=== PATIENT | female | born 1980 | race African-American/Black ===

== ENCOUNTER → 2017-11-11 10:30 | Outpatient (REF) | payer MEDICAID, SELFPAY ==
--- NOTE | 2017-11-11 11:15 | PAPFT_PTH ---
PATIENT: Susana Lipscomb LOC: [facility] U#:[id number] AGE/SX: 44/F ROOM: RE11/11/[address]: MILAN Vitale : 1980 BED: DIS: SPEC #: [id number] RECD: 11/11/17 12:40 STATUS: GEORGE REQ #: [id number] JOSE GUADALUPE: 11/11/17 11:[address]: Belinda San DEPT: [facility] Cytology RECD BY: Bebe Bowser ENTERED: 11/11/17 12:40 SP TYPE: PAPFT OTHR DR: None Tissues: 1 - CX/ENDOCX FOR PAP SMEARS Procedures: PAP THIN PREP/UVM Screening HPV DNA PROBE Comments: [id number]
[2017-11-12 14:53] LABS: Chlamydia Result Negative; GC Result Negative; Specimen Description CERVIX
== END ==
LOC: LBN 10:30
PROVIDERS: Visit Provider Nurse Practitioner Family
DX: Z11.3 Encounter for screening for infections with a predominantly sexual mode of transmission (principal); Z12.4 Encounter for screening for malignant neoplasm of cervix; Z11.51 Encounter for screening for human papillomavirus (HPV)
CPT/HCPCS: 87491; 87591; 88142; 87624

== ENCOUNTER 2017-12-23 12:30 | Outpatient (REF) | payer MEDICAID, SELFPAY ==
[2017-12-23 19:27] LABS: Cholesterol 190 mg/dL (50-200); HDL Cholesterol 31 mg/dL (40-60); LDL CHOLESTEROL 119 mg/dL (<100); TSH 1.43 uIU/mL (0.358-3.74); Triglyceride 184 mg/dL (30-150)
[2017-12-23 19:34] LABS: HCT 43.6 % (36.0-46.0); HGB 14.5 g/dL (12.0-15.5); Mean Corp. HGB Concentration 33.3 g/dL (32.0-36.0); Mean Corpuscular Hemoglobin 29.2 pg (27.0-33.0); Mean Corpuscular Volume 87.9 fL (80-95); Mean Platelet Volume 10.2 fL (8.0-11.0); Platelet Count 265 x1000/uL (130-400); RBC 4.96 m/cumm (4.00-5.20); RBC Distribution Width 14.3 % (11.7-14.6); White Blood Cell Count 5.64 k/cumm (4.4-10.8)
== END 2017-12-23 12:50 ==
LOC: NCHCN 12:30
PROVIDERS: PCP Nurse Practitioner Family; Visit Provider Nurse Practitioner Family
DX: Z00.00 Encounter for general adult medical examination without abnormal findings (principal); Z13.0 Encounter for screening for diseases of the blood and blood-forming organs and certain disorders involving the immune mechanism; Z13.220 Encounter for screening for lipoid disorders; Z13.29 Encounter for screening for other suspected endocrine disorder
CPT/HCPCS: 80061; 83721; 85027; 84443

== ENCOUNTER 2020-06-07 01:10 | Outpatient (CLI) | payer MEDICAID, SELFPAY ==
--- NOTE | 2020-06-07 | DI.MAMMO_ITS ---
EXAM: MAMMO SCREENING CLINICAL HISTORY: SCREENING, [facility],Z00.00 TECHNIQUE: Mammograms were interpreted according to the usual protocol including computer analysis w PT PAL CAD system, tomosynthesis and C-view imaging. COMPARISON: FINDINGS: The breasts are of moderate density with fairly symmetrical distribution of fibroglandular tissue. N o dominant mass or clumped microcalcification is identified in either breast. There are numerous sma ll rim calcified nodules in both breasts. Today's examination is a baseline examination. IMPRESSION: No specific evidence of malignancy at this time. Routine screening examinations are suggested yearly intervals in this age group according to the ACR guidelines. BI-RADS Category 1 - Negative Breast Density - Category B - Scattered areas of fibroglandular density
== END 2020-06-07 01:30 ==
PROVIDERS: Visit Provider Physician Assistant
DX: Z12.31 Encounter for screening mammogram for malignant neoplasm of breast (principal)
CPT/HCPCS: 77063; 77067

== ENCOUNTER 2021-04-07 04:08 | Outpatient (CLI) | payer OTHER, SELFPAY ==
[2021-04-07 09:58] LABS: Hemoglobin A1C 5.3 % (<5.7)
[2021-04-07 10:56] LABS: Calculated LDL 125 mg/dL (<100); Cholesterol 185 mg/dL (<200); HDL Cholesterol 46 mg/dL (40-60); Triglyceride 74 mg/dL (<150)
[2021-04-08 12:23] LABS: HIV-1/2 Ag & Ab Screen Negative (Negative)
[2021-04-10 11:48] LABS: Hepatitis C Ab w Rflx HCV PCR Negative (Negative)
== END 2021-04-07 04:09 | disposition home or self-care (01) ==
LOC: LBO 04:09
PROVIDERS: PCP Family Medicine; Visit Provider Family Medicine
DX: Z00.00 Encounter for general adult medical examination without abnormal findings (principal); E66.9 Obesity, unspecified; Z11.4 Encounter for screening for human immunodeficiency virus [HIV]; Z11.59 Encounter for screening for other viral diseases
CPT/HCPCS: 36415; 80061; 86803; 87389; 83036

== ENCOUNTER 2021-07-22 11:48 | Emergency (ER) | payer OTHER, SELFPAY ==
[2021-07-22 11:51] VITALS: BP 124/78; PULSE 90; RESP 17; TEMP 36.1; O2SAT 99
--- NOTE | 2021-07-22 12:12 | ED.GENADUL_ITS ---
Discharge Plan Disposition Patient Disposition: HOME Condition: Stable Discharge Details Clinical Impression: Laceration of left index finger w/o foreign body with damage to nail Primary Care Provider: Daphney Coe ED Provider: Liat Michael Home Meds and New Rx's Prescriptions: Continued ParaGard T 380A 380 square mm intrauterine device 1 device IY ONCE 0RF acetaminophen [Tylenol] 325 MG tablet 325 mg PO PRN 0RF ascorbic acid (vitamin C) [Vitamin C] 500 MG tablet 500 mg PO DAILY 0RF fluticasone propionate 50 mcg/actuation spray,suspension 2 spray intranasal DAILY 0RF Rx Instructions: administer into each nostril albuterol sulfate [ProAir HFA] 90 mcg/actuation HFA aerosol inhaler 2 puff inhalation Q6H PRN0RF ibuprofen 200 MG capsule 600 mg PO QID PRN PRN0RF Discharge Instructions Instructions: Finger Laceration (ED) Additional Instructions: Keep dressing on for the next 24-48 hours. After that you may gently remove the dressing under running water. Keep clean and dry. May apply bulky dressing and use the splint to prevent bumping. Please take Tylenol or Ibuprofen with food every 4-6 hours as needed for pain and swelling. Keep covered while at work. Allowed to air dry at least 1 to 2 hours a day. Return to the ER or be seen sooner for any signs of infection including increased redness, red streaks, swelling or drainage. Follow up with primary care provider in 3-5 days. Return to ED sooner if any worsening or concerns. Increase oral fluids. Stand Alone Forms: Work Release Referrals: Daphney Coe MD [Primary Care Provider] - 5 days Medical Decision Making 40-year-old female presents to the ER chief complaint of left index finger laceration which occurred prior to arrival. Patient was cutting vegetables cut the tip of her left index finger off. Bleeding is controlled with pressure dressing upon arrival. She has full range of motion to the digit. There is no suturable laceration noted. Last tetanus vaccination was approximately 8 years ago. Wound care was performed with chlorhexidine scrub normal saline by staff registered nurse. Surgicel dressing, tube gauze was applied by staff registered nurse with an aluminum frog splint. Upon patient reevaluation she is complaining of pain gram of Tylenol was ordered and given to her. Discussed home care strict return instructions and follow-up she verbalizes understanding. Bleeding was controlled at time of discharge. This text was generated using [employer] dictation system, please disregard any oddities of phrase or misspellings. HPI General Mode of arrival: ambulatory . Date/Time Provider Initiated Documentation: 07/22/21 12:00 . Limitations to Documentation: no limitations . Information obtained by: patient and RN notes reviewed . HPI Narrative: 40-year-old female presents to the ER chief complaint of left index finger laceration which occurred prior to arrival. Patient was cutting vegetables cut the tip of her left index finger off. Bleeding is controlled with pressure dressing upon arrival. She has full range of motion to the digit. There is no suturable laceration noted. Last tetanus vaccination was approximately 8 years ago. Related Data Home Medications Medication Instructions Recorded Confirmed acetaminophen 325 mg tablet 325 mg PO PRN 05/27/12 07/22/21 (Tylenol) ascorbic acid (vitamin C) 500 mg 500 mg PO DAILY 04/07/15 07/22/21 tablet (Vitamin C) ibuprofen 200 mg capsule 600 mg PO QID PRN PRN 04/01/16 07/22/21 copper 380 square mm intrauterine 1 device IY ONCE 12/10/17 07/22/21 device (ParaGard T 380A) albuterol sulfate 90 mcg/actuation 2 puff INHALATION Q6H PRN 02/06/21 07/22/21 aerosol inhaler (ProAir HFA) fluticasone propionate 50 2 spray INTRANASAL DAILY 02/06/21 07/22/21 mcg/actuation nasal spray,suspension Allergies Allergy/AdvReac Type Severity Reaction Status Date / Time Penicillins Allergy Severe itch and Verified 07/22/21 11:57 rash meperidine HCl [From Demerol] AdvReac Severe I filt Verified 07/22/21 11:57 out seasonal allergies Allergy Unknown Uncoded 07/22/21 11:57 General Stated Complaint: Laceration DIANE: 4 Review of Systems Integumentary/Breasts Skin/Breast: Reports as per HPI and Reports wounds PFSH All Active Problems (Updated 07/22/21 @ 13:05 by Liat Michael) Laceration of left index finger w/o foreign body with damage to nail (Acute) Obesity due to excess calories without serious comorbidity (Acute) IUD surveillance (Acute 04/07/15) no iud issues per patient iud in place pt instructed to check string after menses Medical History (Updated 07/22/21 @ 13:05 by Liat Michael) Migraine h/o migraine since childhood, worse when menstruating. Managed with imitrex, ibuprofen. Very infrequent now. Surgical History (Updated 03/31/21 @ 15:58 by Daphney Coe MD) section (10/10/12) Arrest of descent. Unengaged head. Macrosomia Family History (Updated 12/21/20 @ 13:52 by Sydni Salinas) Mother Migraine Father Diabetes Grandmother Diabetes Grandmother Diabetes Social History (Updated 03/31/21 @ 15:51 by Daphney Coe MD) Smoking/Tobacco Use Status: Never Second Hand Exposure: No Smoking risk assessment performed?: Yes Alcohol Intake: current Alcohol Intake frequency: a few times a month Alcohol type: wine Drug use: Never Substance use type: does not use Adopted: No Household members: spouse and children Number of Children: 2 Education Level: high school Do you need help understanding health information?: Never current occupation: works as a cook in [employer] Pets and animals: Yes Pets and animals: cat(s) and dog(s) Sexually active: Yes Do you think of yourself as: straight/heterosexual What is your relationship status?: How often do you talk on the phone with friends or family?: three or more times per week How often do you get together with friends or relatives?: three or more times per week Do you belong to any clubs or organized social groups?: no Panel score (0-1 are the most socially isolated patients): 2 What type of physical activity do you participate in: walking Frequency: 3-4 times per week Radha/Judaism: No preference Seatbelt use: always Helmet use: Yes Helmet use: always Drive intox or ride w/intox electric mule driver: No Do you feel safe in your relationship?: Yes Additional Social history: Enjoys spending time with her children, hiking. Female Reproductive History Menstrual control method: copper IUCD (Lot#[id number] EXP SEP 2013) History History 2 Para Hx # Term Pregnancies 2 Multiple births Hx # Pregnancies Ectopic pregnancies AB induced Hx Number of Living Children AB spontaneous Exam Extrem Left upper extremity: hand Hand/finger images: 1. Left index finger avulsion, partial tip amputation measuring approximately 0.5 cm venous oozing noted. Full range of motion noted to the digit. No other injuries. Course Vital Signs Vital signs: Vital Signs Temperature 36.1 C L 07/22/21 11:51 Pulse 90 07/22/21 11:51 Respiratory Rate 17 07/22/21 11:51 Blood Pressure 124/78 07/22/21 11:51 Pulse Oximetry 99 07/22/21 11:51 Temperature 36.1 C L 07/22/21 11:51 Temperature Source Tympanic 07/22/21 11:51 Pulse 90 07/22/21 11:51 Respiratory Rate 17 07/22/21 11:51 Respiratory Effort Non-Labored 07/22/21 11:54 Blood Pressure 124/78 07/22/21 11:51 Blood Pressure Position Sitting 07/22/21 11:51 Pulse Oximetry 99 07/22/21 11:51 Oxygen Delivery Method Room Air 07/22/21 11:51 Oxygen Flow Rate 0 07/22/21 11:51 Pain Level 1 07/22/21 11:54
[2021-07-22] MEDS: Cellulose,Oxidized 2X3 PKT 1 EACH MC (12:48)
[2021-07-22] MEDS: Acetaminophen 500 MG TAB 1000 MG PO (13:15)
== END 2021-07-22 13:17 | disposition home or self-care (01) ==
PROVIDERS: Emergency Provider Registered Nurse Emergency; PCP Family Medicine
DX: S61.311A Laceration without foreign body of left index finger with damage to nail, initial encounter (principal); W26.0XXA Contact with knife, initial encounter
CPT/HCPCS: 29130; 99283

== ENCOUNTER 2023-01-15 10:44 | Outpatient (REF) | payer OTHER, SELFPAY ==
--- NOTE | 2023-02-15 14:45 | PAPFT_PTH ---
PATIENT: Susana Lipscomb LOC: [facility] U#:[id number] AGE/SX: 42/F ROOM: RE01/15/[address]: Daphney Coe : 1980 BED: DIS: 01/15/2023 SPEC #: [id number] RECD: 02/18/23 13:24 STATUS: GEORGE REQ #: [id number] JOSE GUADALUPE: 02/15/23 14:[address]: Daphney Coe DEPT: [facility] Cytology RECD BY: Bebe Bowser Tissues: 1 - CX/ENDOCX FOR PAP SMEARS Procedures: PAP THIN PREP/UVM Screening HPV DNA PROBE Comments: [id number]
== END 2023-01-15 10:45 | disposition home or self-care (01) ==
LOC: LBN 10:44
PROVIDERS: PCP Family Medicine; Visit Provider Family Medicine
DX: Z12.4 Encounter for screening for malignant neoplasm of cervix (principal)
CPT/HCPCS: 88142; 87624

== ENCOUNTER 2023-08-08 13:13 | Outpatient (CLI) | payer OTHER, SELFPAY ==
[2023-08-08 13:06] LABS: Abs Immature Grans 0.01 10^3/uL (0.0-0.06); Absolute Basophil Count 0.01 10^3/uL (0.0-0.2); Absolute Eosinophil Count 0.01 10^3/uL (0.0-0.7); Absolute Lymphocyte Count 1.25 10^3/uL (1.2-3.4); Absolute Monocyte Count 0.32 10^3/uL (0.1-0.8); Absolute Neutrophil Count 3.56 10^3/uL (1.2-6.7); Basophils % 0.2 %; Eosinophils % 0.2 %; HCT 41.8 % (36.0-46.0); HGB 13.7 g/dL (11.2-15.7); Immature Grans % 0.2 %; Lymphocytes % 24.2 %; MCH 29.2 pg (27.0-33.0); MCHC 32.8 % (32.0-36.0); MCV 89 fL (80-95); MPV 9.6 fL (8.0-11.0); Monocytes % 6.2 %; Platelet Count 253 10^3/uL (130-400); RBC 4.69 10^6/uL (3.93-5.22); RDW 14.6 % (11.7-14.6); RDW-SD 47.3 fL; WBC 5.16 10^3/uL (4.4-10.8)
[2023-08-08 13:55] LABS: ALT 26 U/L (14-59); AST 15 U/L (15-37); Alkaline Phosphatase 41 U/L (46-116); BUN 11 mg/dL (7-18); Bilirubin, Total 0.7 mg/dL (0.2-1.0); CREATININE 0.7 mg/dL (0.55-1.02); Calcium 8.5 mg/dL (8.5-10.1); Chloride 104 mmol/L (98-107); Glucose 85 mg/dL (74-106); Potassium 3.6 mmol/L (3.5-5.1); Sodium 139 mmol/L (136-145); Total Protein 7.5 g/dL (6.4-8.2)
== END 2023-08-08 13:14 | disposition home or self-care (01) ==
LOC: LBO 13:13
PROVIDERS: PCP Family Medicine; Visit Provider Plastic Surgery
DX: E65 Localized adiposity (principal)
CPT/HCPCS: 36415; 80053; 85025

== ENCOUNTER 2024-03-26 01:43 | Outpatient (CLI) | payer OTHER, SELFPAY ==
--- NOTE | 2024-03-26 06:15 | DI.MAMMO_ITS ---
Exam(s) MAMMO SCREENING EXAM: MAMMO SCREENING CLINICAL HISTORY: screening,z12..39. TECHNIQUE: Bilateral full field digital CC and MLO mammographic images were obtained with 3D tomosyn thesis and utilizing computer aided detection (CAD). COMPARISON: Prior mammograms were reviewed. FINDINGS: There has been no significant change in the appearance and distribution of the fibroglandular tissue. There are multiple benign peripherally calcified small oral cysts in both breasts. There is a new sm all group of microcalcifications anteriorly in the right breast lateral of center which has benign ap pearance. There are no new spiculated masses nor new malignant appearing microcalcification groups. There is no significant architectural distortion nor skin thickening-retraction. IMPRESSION: Benign findings. No radiographic evidence of malignancy. BI-RADS Category 2 - Benign Findings Breast Density - Category B - Scattered areas of fibroglandular density Breast density Category C or D implies that the patient has dense breast tissue. Dense breast tissue can make it harder to find cancer on a mammogram. Dense breast tissue is also associated with an incr eased risk of breast cancer. This information about the result of the mammogram report was provided to the patient to raise their awareness. Use this report when you speak with the patient about their risks for breast cancer, which includes their family history. At that time, you may recommend additional screening tests (Ultrasoun d or MRI) as these tests may add significant information. A negative radiographic report should not delay biopsy if a dominant or clinically suspicious mass is present. Up to ten percent of cancers are not identified on mammography. A negative report may reinforce clinical impression. Adenosis and dense breasts may obscure an underlying neoplasm. False positive reports average 6 to 10%. Patient will receive a letter notifying them of these results.
== END 2024-03-26 02:03 ==
LOC: DI 01:44
PROVIDERS: PCP Family Medicine; Visit Provider Family Medicine
DX: Z12.31 Encounter for screening mammogram for malignant neoplasm of breast (principal); D24.1 Benign neoplasm of right breast; D24.2 Benign neoplasm of left breast; R92.323 Mammographic fibroglandular density, bilateral breasts
CPT/HCPCS: 77063; 77067